=== PATIENT | male | born 1950 | race Caucasian/White ===

== ENCOUNTER 2020-06-29 00:36 | Outpatient (CLI) | payer OTHER, SELFPAY ==
[2020-06-29 17:42] LABS: SARS-CoV-2 RNA PCR Negative
== END 2020-06-29 00:37 | disposition home or self-care (01) ==
LOC: ANHCOVIDDT 00:37
PROVIDERS: PCP Internal Medicine; Visit Provider Internal Medicine Gastroenterology
DX: Z01.812 Encounter for preprocedural laboratory examination (principal); Z20.828 Contact with and (suspected) exposure to other viral communicable diseases
CPT/HCPCS: 87635; C9803; U0003

== ENCOUNTER 2020-07-01 02:19 | Day surgery (SDC) | payer OTHER, SELFPAY ==
[2020-06-24 14:18] VITALS: BMI 29.0
[2020-07-01 07:08] VITALS: BP 118/83; PULSE 86; RESP 18; TEMP 36.3; O2SAT 99; BMI 28.3
[2020-07-01] MEDS: LACTATED RINGERS 1,000 ML 150 ML IV CONT (07:20)
--- NOTE | 2020-07-01 07:42 | WPDANESEPPF ---
Anes - Initial Pre Proc Eval Procedure: Operation Date: 07/01/20 08:00 Proposed Procedures p Screening Colonoscopy - Kilo Patel MD Date/Time: 07/01/20 07:42 Surgeon: Kilo Patel MD Pre Op Diagnosis: Neoplasm Screening Patient Data Age: 69 Gender: M Height: 5 ft 7 in Weight: 82 kg Last Vital Signs Temp 97.4 F L 07/01/20 07:08 Pulse 86 07/01/20 07:08 Resp 18 07/01/20 07:08 BP 118/83 07/01/20 07:08 Pulse Ox 99 07/01/20 07:08 Allergies Allergy/AdvReac Type Severity Reaction Status Date / Time No Known Allergies Allergy Verified 07/01/20 07:06 Home Medications Medication Instructions Recorded Confirmed Type cholecalciferol (vitamin D3) 25 1,000 unit PO DAILY 10/22/19 06/24/20 History mcg (1,000 unit) capsule divalproex 250 mg tablet,delayed See Rx Instructions .ROUTE 05/01/20 06/24/20 Rx release .COMPLEX #270 tablet venlafaxine 75 mg tablet,extended See Rx Instructions .ROUTE 06/05/20 06/24/20 Rx release 24 hr .COMPLEX #90 tablet Patient hx anesthesia problems: none Family hx anesthesia problems: none PMFSH Family History Family History (Updated 09/21/18 @ 15:30 by DOCTOR UNKNOWN) Sibling Family history of mental disorder Family history of diabetes mellitus in first degree relative Diabetes mellitus Father Acute myocardial infarction Family history of coronary artery disease Mother Acute myocardial infarction, Onset Age: 60 Diabetes mellitus Family history of coronary artery disease Depression Grandparent Diabetes mellitus Other Family history of heart disease in male family member before age 55 Social History Social History Smoking status: Light tobacco smoker Alcohol intake: current Drinks per week: 2 Living arrangements: with family Gender identity (if verbalized by the patient): Male Spiritual care concerns: No Anes - Eval Final PreProcedure Day of Procedure 07/01/20 07:42 Patient weight: normal Heart: regular rate and rhythm Lungs: clear to auscultation Airway: Mallampati scale class II Neurological: alert and oriented Last oral intake: >/= 8 hours ASA classification: II Emergent: no Anesthetic plan: proceed Anesthesia type and monitoring: general GIVS and standard monitoring Informed Consent: The patient's anesthetic plan and its attendant risks and benefits were discussed with the patient/family/POA. Questions were solicited and answers provided to the satisfaction of the patient/family/POA.
--- NOTE | 2020-07-01 08:00 | PM.HPGS ---
History of Present Illness History of Present Illness Consent: Risks, benefits, and alternatives have been discussed and questions answered. Patient agrees to proceed with procedure. Chief complaint: Neoplasm Screening Narrative: Artem Anglea is a 69 year old male here for screening colonoscopy, last one 2008 Review of Systems Constitutional: Constitutional: Denies headache(s) and Denies weakness Eyes: Eyes: Denies blurry vision ENT: Reports Normal hearing present, Denies headache(s) and Denies neck pain Cardiovascular: Cardiovascular: Denies chest pain and Denies dyspnea Respiratory: Respiratory: Denies dyspnea Gastrointestinal: Gastrointestinal: Reports no additional gastrointestinal complaints Genitourinary: Genitourinary: Denies dysuria Musculoskeletal: Musculoskeletal: Denies neck pain Integumentary/Breasts: Skin/Breast: Denies dry skin Neurologic: Reports Normal hearing present, Denies headache(s) and Denies weakness Psychiatric: Psychiatric: Denies anxiety Endocrine: Endocrine: Denies change in body appearance Hematologic/Lymphatic: Hematologic/Lymphatic: Denies easy bleeding Allergic/Immunologic: Allergic/Immunologic: Denies urticaria PMF Family History Family History (Updated 09/21/18 @ 15:30 by DOCTOR UNKNOWN) Sibling Family history of mental disorder Family history of diabetes mellitus in first degree relative Diabetes mellitus Father Acute myocardial infarction Family history of coronary artery disease Mother Acute myocardial infarction, Onset Age: 60 Diabetes mellitus Family history of coronary artery disease Depression Grandparent Diabetes mellitus Other Family history of heart disease in male family member before age 55 Social History Social History Smoking status: Light tobacco smoker Alcohol intake: current Drinks per week: 2 Living arrangements: with family Gender identity (if verbalized by the patient): Male Spiritual care concerns: No Meds Home Medications and Allergies Home Medications Medication Instructions Recorded Confirmed Type cholecalciferol (vitamin D3) 25 1,000 unit PO DAILY 10/22/19 06/24/20 History mcg (1,000 unit) capsule divalproex 250 mg tablet,delayed See Rx Instructions .ROUTE 05/01/20 06/24/20 Rx release .COMPLEX #270 tablet venlafaxine 75 mg tablet,extended See Rx Instructions .ROUTE 06/05/20 06/24/20 Rx release 24 hr .COMPLEX #90 tablet Allergies Allergy/AdvReac Type Severity Reaction Status Date / Time No Known Allergies Allergy Verified 07/01/20 07:06 Vital Signs Vital Signs - 24 hr 07/01/20 07:08 Temperature 97.4 F L Pulse Rate 86 Respiratory Rate 18 Blood Pressure 118/83 Pulse Oximetry 99 Exam Const: General: comfortable and no acute distress HENMT: General nose exam: Normal nares present Eyes: General: appearance normal, both eyes and all related structures Neck: Neck: no JVD Resp: Auscultation: clear to auscultation bilaterally Cardio: Rate: regular rate Rhythm: regular rhythm GI: Inspection: non-distended GI Palp: Yes Soft to palpation Skin: General skin exam: normal color Neuro: General: gait normal Speech: normal speech Extrem: General: normal to inspection Psych: Mental Status: mental status grossly normal Assessment and Plan Assessment and plan (1) Encounter for screening colonoscopy: Code(s): Z12.11 - Encounter for screening for malignant neoplasm of colon Status: Acute Assessment and Plan: will proceed with colonoscopy
[2020-07-01 08:18] VITALS: BP 118/74; PULSE 72; RESP 15; O2SAT 95
[2020-07-01 08:28] VITALS: BP 127/81; PULSE 70; RESP 25; O2SAT 98
[2020-07-01 08:38] VITALS: BP 121/77; PULSE 79; RESP 16; O2SAT 98
== END 2020-07-01 08:55 | disposition home or self-care (01) ==
PROVIDERS: PCP Internal Medicine; Visit Provider Internal Medicine Gastroenterology
PROC: 0DJD8ZZ Inspection of Lower Intestinal Tract, Via Natural or Artificial Opening Endoscopic (ICD-10-PCS; CPT 45378; principal; 2020-07-01 08:00)
DX: Z12.11 Encounter for screening for malignant neoplasm of colon (principal); K57.30 Diverticulosis of large intestine without perforation or abscess without bleeding; D12.4 Benign neoplasm of descending colon; K64.8 Other hemorrhoids; F17.200 Nicotine dependence, unspecified, uncomplicated
CPT/HCPCS: 45385; 88305; J2704; J7120

== ENCOUNTER 2020-11-18 10:30 | Outpatient (CLI) | payer OTHER, SELFPAY ==
--- NOTE | ~2020-11-18 | US_ITS ---
EXAMINATION: US aorta [facility] DATE: 11/18/2020 11:02 INDICATION: Abdominal aortic aneurysm screening TECHNIQUE: Grayscale, color Doppler, and pulsed Doppler images of the aorta and common iliac arteries were obtained. COMPARISON: None. FINDINGS: Maximum vascular dimensions are as follows: Proximal aorta: 2.3 cm Mid aorta: 1.5 cm Distal aorta: 1.6 cm Right common iliac artery: 1.2 cm Left common iliac artery: 1.2 cm There is no evidence of abdominal aortic aneurysm. IMPRESSION: 1. No sonographically detected abdominal aortic aneurysm. Reviewed, dictated and finalized at location A. [employer]
== END 2020-11-18 10:31 | disposition home or self-care (01) ==
PROVIDERS: PCP Internal Medicine; Visit Provider Internal Medicine
DX: Z13.6 Encounter for screening for cardiovascular disorders (principal)
CPT/HCPCS: 76706

== ENCOUNTER → 2021-12-30 09:23 | Outpatient (REF) | payer MEDICARE, SELFPAY | LOC: ANHLAB 09:23 | PROVIDERS: PCP Internal Medicine; Visit Provider Nurse Practitioner | DX: L81.4 Other melanin hyperpigmentation (principal); D04.5 Carcinoma in situ of skin of trunk | CPT/HCPCS: 88305 ==

== ENCOUNTER → 2022-02-21 10:47 | Outpatient (REF) | payer MEDICARE, SELFPAY | LOC: ANHLAB 10:47 | PROVIDERS: PCP Internal Medicine; Visit Provider Nurse Practitioner | DX: C44.529 Squamous cell carcinoma of skin of other part of trunk (principal) | CPT/HCPCS: 88305; 88331 ==

== ENCOUNTER 2022-07-19 07:00 | Outpatient (NON) | payer MEDICARE, SELFPAY | END 2022-07-19 07:01 | disposition home or self-care (01) | LOC: ANHLAB 07-20 14:53 | PROVIDERS: PCP Nurse Practitioner; Visit Provider Nurse Practitioner | DX: D49.2 Neoplasm of unspecified behavior of bone, soft tissue, and skin (principal) | CPT/HCPCS: 88305 ==

== ENCOUNTER 2022-12-20 09:47 | Outpatient (CLI) | payer MEDICARE, SELFPAY ==
[2022-12-20 19:18] LABS: Hemoglobin A1C 5.7 % (<5.7)
[2022-12-20 19:21] LABS: Alanine Aminotransferase 24 U/L (6-50); Albumin Level 3.4 g/dL (3.5-5.1); Alkaline Phosphatase 51 U/L (38-126); Anion Gap 0 mmol/L (8-16); Aspartate Amino Transferase 32 U/L (17-59); Bilirubin,Total 0.6 mg/dL (0.2-1.3); Blood Urea Nitrogen 23 mg/dL (9-20); Calcium 8.8 mg/dL (8.4-10.2); Carbon Dioxide 35 mmol/L (22-30); Chloride 103 mmol/L (98-107); Cholesterol 151 mg/dL (0-200); Estimated Glomerular Filt Rate > 60; Glucose 107 mg/dL (65-110); HDL Direct 49 mg/dL; Potassium 4.6 mmol/L (3.4-5.0); Sodium 138 mmol/L (137-145); Triglycerides 136 mg/dL (<150)
[2022-12-20 19:33] LABS: LDL Cholesterol Direct 79 mg/dL
[2022-12-20 19:47] LABS: Prostate Specific Antigen 2.5 ng/mL (< OR = 4.0)
== END 2022-12-20 09:48 | disposition home or self-care (01) ==
LOC: ANHGOSHLAB 09:48
PROVIDERS: PCP Family Medicine; Visit Provider Family Medicine
DX: E78.5 Hyperlipidemia, unspecified (principal); Z13.228 Encounter for screening for other metabolic disorders; Z12.5 Encounter for screening for malignant neoplasm of prostate; R73.01 Impaired fasting glucose
CPT/HCPCS: 36415; 80053; 80061; 83036; 84153; G0103

== ENCOUNTER 2023-01-02 14:30 | Outpatient (CLI) | payer MEDICARE, SELFPAY ==
--- NOTE | ~2023-01-02 | XR_ITS ---
EXAMINATION: XR knee LT min 4V DATE: 01/02/2023 14:54 INDICATION: Left knee pain TECHNIQUE: Four views of the left knee were obtained. COMPARISON: None. FINDINGS: Alignment is normal. No fracture or osteochondral lesion. There is mild tricompartmental os teoarthritis characterized by tiny marginal osteophytes. No joint effusion/synovitis. Soft tissues a re unremarkable. IMPRESSION: 1. No acute osseous abnormality. Reviewed, dictated and finalized at location L.
== END 2023-01-02 14:31 | disposition home or self-care (01) ==
PROVIDERS: PCP Family Medicine; Visit Provider Family Medicine
DX: M25.562 Pain in left knee (principal)
CPT/HCPCS: 73564

== ENCOUNTER 2023-07-18 12:03 | Outpatient (NON) | payer MEDICARE, SELFPAY | END 2023-07-18 12:04 | disposition home or self-care (01) | LOC: ANHLAB 07-19 12:04 | PROVIDERS: PCP Family Medicine; Visit Provider Nurse Practitioner | DX: L81.4 Other melanin hyperpigmentation (principal); L30.8 Other specified dermatitis; L57.8 Other skin changes due to chronic exposure to nonionizing radiation | CPT/HCPCS: 88305 ==

== ENCOUNTER 2023-12-28 11:06 | Outpatient (CLI) | payer MEDICARE, SELFPAY ==
[2023-12-28 14:00] LABS: Alanine Aminotransferase 26 U/L (6-50); Albumin Level 3.6 g/dL (3.5-5.1); Alkaline Phosphatase 58 U/L (38-126); Anion Gap 3 mmol/L (4-12); Aspartate Amino Transferase 43 U/L (17-59); Bilirubin,Total 0.6 mg/dL (0.2-1.3); Blood Urea Nitrogen 18 mg/dL (9-20); Calcium 9.4 mg/dL (8.4-10.2); Carbon Dioxide 29 mmol/L (22-30); Chloride 109 mmol/L (98-107); Cholesterol 149 mg/dL (0-200); Estimated Glomerular Filt Rate > 60; Glucose 109 mg/dL (65-110); HDL Direct 56 mg/dL; Potassium 4.6 mmol/L (3.4-5.0); Sodium 141 mmol/L (137-145); Triglycerides 62 mg/dL (<150)
[2023-12-28 14:13] LABS: LDL Cholesterol Direct 80 mg/dL
[2023-12-28 14:31] LABS: Prostate Specific Antigen 2.9 ng/mL (< OR = 4.0)
== END 2023-12-28 11:07 | disposition home or self-care (01) ==
LOC: ANHGOSHLAB 11:07
PROVIDERS: PCP Family Medicine; Visit Provider Family Medicine
DX: Z12.5 Encounter for screening for malignant neoplasm of prostate (principal); Z13.228 Encounter for screening for other metabolic disorders; Z13.220 Encounter for screening for lipoid disorders; E66.3 Overweight
CPT/HCPCS: 36415; 80053; 80061; 84153; G0103

== ENCOUNTER 2025-01-07 09:19 | Outpatient (CLI) | payer MEDICARE, SELFPAY ==
[2025-01-07 13:50] LABS: Hematocrit 46.9 % (42.0-52.0); Hemoglobin 14.6 g/dL (14.0-18.0); Mean Corpuscular HGB Conc 31.1 g/dl (32-36); Mean Corpuscular Hemoglobin 30.8 pg (26-34); Mean Corpuscular Volume 98.9 fl (80-100); Mean Platelet Volume 10.4 fl (7.4-10.4); Platelet Count Result 218 k/mm3 (150-375); Red Blood Count 4.74 M/mm3 (4.6-6.20); Red Cell Distribution Width 12.6 % (11.5-14.5); White Blood Count 5.9 K/mm3 (4.5-10.0)
[2025-01-07 13:57] LABS: Alanine Aminotransferase 22 U/L (6-50); Albumin Level 3.4 g/dL (3.5-5.1); Alkaline Phosphatase 52 U/L (38-126); Anion Gap 8 mmol/L (4-12); Aspartate Amino Transferase 47 U/L (17-59); Bilirubin,Total 0.4 mg/dL (0.2-1.3); Blood Urea Nitrogen 28 mg/dL (9-20); Calcium 9.1 mg/dL (8.4-10.2); Carbon Dioxide 25 mmol/L (22-30); Chloride 107 mmol/L (98-107); Cholesterol 138 mg/dL (0-200); Estimated Glomerular Filt Rate > 60; Glucose 115 mg/dL (65-110); HDL Direct 53 mg/dL; Potassium 4.5 mmol/L (3.4-5.0); Sodium 140 mmol/L (137-145); Triglycerides 72 mg/dL (<150)
[2025-01-07 14:17] LABS: LDL Cholesterol Direct 55 mg/dL
[2025-01-07 15:50] LABS: Hemoglobin A1C 5.6 % (<5.7)
== END 2025-01-07 09:20 | disposition home or self-care (01) ==
LOC: ANHGOSHLAB 09:20
PROVIDERS: PCP Family Medicine; Visit Provider Family Medicine
DX: E78.00 Pure hypercholesterolemia, unspecified (principal); R73.03 Prediabetes; E66.9 Obesity, unspecified; E55.9 Vitamin D deficiency, unspecified; Z12.5 Encounter for screening for malignant neoplasm of prostate; Z79.899 Other long term (current) drug therapy
CPT/HCPCS: 36415; 80053; 80061; 82652; 83036; 84443; 85027

== ENCOUNTER 2025-06-23 10:09 | Outpatient (CLI) | payer MEDICARE, SELFPAY ==
[2025-06-23 13:02] LABS: Hematocrit 45.6 % (42.0-52.0); Hemoglobin 15.0 g/dL (14.0-18.0); Mean Corpuscular HGB Conc 32.9 g/dl (32-36); Mean Corpuscular Hemoglobin 31.3 pg (26-34); Mean Corpuscular Volume 95.2 fl (80-100); Platelet Count Result 209 k/mm3 (150-375); Red Blood Count 4.79 M/mm3 (4.6-6.20); White Blood Count 5.4 K/mm3 (4.5-10.0)
[2025-06-23 13:14] LABS: Alanine Aminotransferase 25 U/L (6-50); Albumin Level 3.3 g/dL (3.5-5.1); Alkaline Phosphatase 50 U/L (38-126); Anion Gap 4 mmol/L (4-12); Aspartate Amino Transferase 41 U/L (17-59); Bilirubin,Total 0.3 mg/dL (0.2-1.3); Blood Urea Nitrogen 22 mg/dL (9-20); Calcium 8.7 mg/dL (8.4-10.2); Carbon Dioxide 28 mmol/L (22-30); Chloride 107 mmol/L (98-107); Cholesterol 215 mg/dL (0-200); Estimated Glomerular Filt Rate > 60; Glucose 112 mg/dL (65-110); HDL Direct 48 mg/dL; Potassium 4.4 mmol/L (3.4-5.0); Sodium 139 mmol/L (137-145); Total Protein 5.7 g/dL (6.3-8.2); Triglycerides 93 mg/dL (<150)
[2025-06-23 13:57] LABS: Thyroid Stimulating Hormone 0.778 uIU/mL (0.465-4.680)
[2025-06-23 14:00] LABS: Hemoglobin A1C 5.6 % (<5.7)
== END 2025-06-23 10:10 | disposition home or self-care (01) ==
LOC: ANHGOSHLAB 10:10
PROVIDERS: PCP Family Medicine; Visit Provider Family Medicine
DX: E78.00 Pure hypercholesterolemia, unspecified (principal); E66.9 Obesity, unspecified; R73.03 Prediabetes; Z79.899 Other long term (current) drug therapy
CPT/HCPCS: 36415; 80053; 80061; 83036; 84443; 85027

== ENCOUNTER 2025-07-01 00:30 | Day surgery (SDC) | payer MEDICARE, SELFPAY ==
[2025-06-24 09:15] VITALS: BMI 29.0
[2025-07-01 11:49] VITALS: BP 135/78; PULSE 65; RESP 20; TEMP 36.2; O2SAT 99
[2025-07-01] MEDS: LACTATED RINGERS 1,000 ML 150 ML IV CONT (12:06)
--- NOTE | 2025-07-01 12:44 | WPDANESEPPF ---
Anes - Initial Pre Proc Eval Procedure: Operation Date: 07/01/25 13:00 Proposed Procedures p Screening Colonoscopy - Michael Munoz MD Date/Time: 07/01/25 12:44 Surgeon: Michael Munoz MD Pre Op Diagnosis: Polyp of colon Patient Data Age: 74 Gender: M Height: 1.7 m Weight: 83.2 kg Last Vital Signs Temp 36.2 C L 07/01/25 11:49 Pulse 65 07/01/25 11:49 Resp 20 07/01/25 11:49 BP 135/78 07/01/25 11:49 Pulse Ox 99 07/01/25 11:49 O2 Del Method Room Air 07/01/25 11:49 Allergies Allergy/AdvReac Type Severity Reaction Status Date / Time No Known Allergies Allergy Verified 07/01/25 11:47 Home Medications ?Medication ?Instructions ?Recorded ?Confirmed ?Type lbltxzzfwmkf-[id number] acid-vit 1 tablet PO DAILY 01/18/22 07/01/25 History K-lycop 400 mcg-20 mcg-370 mcg tablet (One-A-Day Men's 50 Plus (with vitamin K)) divalproex 250 mg tablet,delayed 250 mg PO BID #270 tabs 06/16/25 07/01/25 Rx release venlafaxine 75 mg capsule,extended 75 mg PO DAILY #100 caps 06/16/25 07/01/25 Rx release 24 hr cholecalciferol (vitamin D3) 25 25 mcg PO DAILY 07/01/25 07/01/25 History mcg (1,000 unit) capsule rosuvastatin 5 mg tablet 5 mg PO QHS 07/01/25 07/01/25 History Patient hx anesthesia problems: none Family hx anesthesia problems: none Results Review: All pre-operative results and documents have been reviewed as part of the pre-operative evaluation. [facility] Past Medical History Medical History (Updated 07/01/25 @ 12:44 by Ryan Ferrari MD) Pure hypercholesterolemia History of tobacco use Depression Surgical History Surgical History History of hernia repair History of hemorrhoidectomy Family History Family History Sibling Family history of mental disorder Family history of diabetes mellitus in first degree relative Diabetes mellitus Father Acute myocardial infarction Family history of coronary artery disease Mother Acute myocardial infarction, Onset Age: 60 Diabetes mellitus Family history of coronary artery disease Depression Grandparent Diabetes mellitus Other Family history of heart disease in male family member before age 55 Social History Social History Smoking status: Never smoker Tobacco type: cigars Additional smoking assessment comments: cigars 6 times per year Alcohol intake: current Drinks per week: 2 Substance use: never Substance use type: does not use Lack of Transportation: No Lack of Food: Never True Current Housing: I Have Housing Concerned About Future Housing: No Difficulty Paying Gas/Electric Bills: No Difficulty Paying for Meds: No Currently Unemployed: No Education: Master's Degree or Higher Difficulty w/ Childcare or Family Care: No Living arrangements: with family Gender identity (if verbalized by the patient): Male Spiritual care concerns: No Anes - Eval Final PreProcedure Day of Procedure 07/01/25 12:44 Patient weight: overweight Heart: regular rate and rhythm Lungs: clear to auscultation Airway: Mallampati scale class II Neurological: alert and oriented Last oral intake: >/= 8 hours ASA classification: II Emergent: no Anesthetic plan: proceed Anesthesia type and monitoring: general GIVS and standard monitoring Results Review: All pre-operative results and documents have been reviewed as part of the pre-operative evaluation. Informed Consent: The patient's anesthetic plan and its attendant risks and benefits were discussed with the patient/family/POA. Questions were solicited and answers provided to the satisfaction of the patient/family/POA.
--- NOTE | 2025-07-01 13:06 | PM.IMHP ---
H&P: HPI History of Present Illness Date/Time: 07/01/25 13:06 Chief Complaint: Screening colonoscopy Narrative: This is the patient's 2nd colonoscopy after 10 years. There are no GI symptoms and there is no family history of colorectal cancer. Review of Systems Review of Systems: All systems reviewed & are unremarkable except as noted in HPI and below PMFSH Past Medical History Medical History (Updated 07/01/25 @ 13:06 by Michael Munoz MD) Pure hypercholesterolemia History of tobacco use Depression Surgical History Surgical History History of hernia repair History of hemorrhoidectomy Family History Family History Sibling Family history of mental disorder Family history of diabetes mellitus in first degree relative Diabetes mellitus Father Acute myocardial infarction Family history of coronary artery disease Mother Acute myocardial infarction, Onset Age: 60 Diabetes mellitus Family history of coronary artery disease Depression Grandparent Diabetes mellitus Other Family history of heart disease in male family member before age 55 Social History Social History Smoking status: Never smoker Tobacco type: cigars Additional smoking assessment comments: cigars 6 times per year Alcohol intake: current Drinks per week: 2 Substance use: never Substance use type: does not use Lack of Transportation: No Lack of Food: Never True Current Housing: I Have Housing Concerned About Future Housing: No Difficulty Paying Gas/Electric Bills: No Difficulty Paying for Meds: No Currently Unemployed: No Education: Master's Degree or Higher Difficulty w/ Childcare or Family Care: No Living arrangements: with family Gender identity (if verbalized by the patient): Male Spiritual care concerns: No Meds Home Medications and Allergies Home Medications ?Medication ?Instructions ?Recorded ?Confirmed ?Type uzfxgdefnnvj-xpn-[id number] acid-vit 1 tablet PO DAILY 01/18/22 07/01/25 History K-lycop 400 mcg-20 mcg-370 mcg tablet (One-A-Day Men's 50 Plus (with vitamin K)) divalproex 250 mg tablet,delayed 250 mg PO BID #270 tabs 06/16/25 07/01/25 Rx release venlafaxine 75 mg capsule,extended 75 mg PO DAILY #100 caps 06/16/25 07/01/25 Rx release 24 hr cholecalciferol (vitamin D3) 25 25 mcg PO DAILY 07/01/25 07/01/25 History mcg (1,000 unit) capsule rosuvastatin 5 mg tablet 5 mg PO QHS 07/01/25 07/01/25 History Allergies Allergy/AdvReac Type Severity Reaction Status Date / Time No Known Allergies Allergy Verified 07/01/25 11:47 Vital Signs Vital Signs - 24 hr 07/01/25 11:49 Temperature 97.2 F L Pulse Rate 65 Respiratory Rate 20 Blood Pressure 135/78 Pulse Oximetry 99 Oxygen Delivery Room Air Exam Const: General: cooperative and healthy appearing Resp: Effort & Inspection: normal respiratory effort and able to speak in complete sentences Auscultation: clear to auscultation bilaterally Cardio: Rate: regular rate Rhythm: regular rhythm GI: Inspection: normal to inspection GI Palp: No No hepatosplenomegaly present Auscultation: normal bowel sounds Rectal Exam: deferred Skin: General skin exam: normal color Psych: Appearance: grossly normal Mental Status: mental status grossly normal Assessment and Plan Assessment and plan (1) Encounter for screening colonoscopy: Code(s): Z12.11 - Encounter for screening for malignant neoplasm of colon Status: Acute Assessment and Plan: The patient is deemed a good candidate for the procedure. Consent signed. Will proceed.
[2025-07-01 13:28] VITALS: BP 122/77; PULSE 77; RESP 21; O2SAT 97
[2025-07-01 13:38] VITALS: BP 141/86; PULSE 69; RESP 16; O2SAT 100
[2025-07-01 13:48] VITALS: BP 128/82; PULSE 73; RESP 16; O2SAT 100
== END 2025-07-01 14:01 | disposition home or self-care (01) ==
PROVIDERS: PCP Family Medicine; Referring Provider Family Medicine; Visit Provider Internal Medicine Gastroenterology
PROC: 0DJD8ZZ Inspection of Lower Intestinal Tract, Via Natural or Artificial Opening Endoscopic (ICD-10-PCS; CPT 45378; principal; 2025-07-01 13:00)
DX: Z12.11 Encounter for screening for malignant neoplasm of colon (principal); K64.8 Other hemorrhoids; E78.00 Pure hypercholesterolemia, unspecified; F32.A Depression, unspecified; F17.290 Nicotine dependence, other tobacco product, uncomplicated; Z98.890 Other specified postprocedural states; Z82.49 Family history of ischemic heart disease and other diseases of the circulatory system
CPT/HCPCS: G0121; J2003; J2704; J7120